=== PATIENT | male | born 1990 | race Caucasian/White ===

== ENCOUNTER 2017-06-02 21:11 | Emergency (ER) | payer OTHER ==
[~2017-06-02] VITALS: Ht 175.3 cm; Wt 95.3 kg
[2017-06-02] MEDS ORDERED: PERCOCET (21:24)
[2017-06-02 21:35] VITALS: BP 151/91
== END 2017-06-02 21:53 | disposition short-term general hospital (02) ==
LOC: ER 21:11
DX: S68.110A Complete traumatic metacarpophalangeal amputation of right index finger, initial encounter (principal); S68.122A Partial traumatic metacarpophalangeal amputation of right middle finger, initial encounter; S68.022A Partial traumatic metacarpophalangeal amputation of left thumb, initial encounter; M20.001 Unspecified deformity of right finger(s); M21.942 Unspecified acquired deformity of hand, left hand; F17.210 Nicotine dependence, cigarettes, uncomplicated; W39.XXXA Discharge of firework, initial encounter; Y93.89 Activity, other specified; Y92.89 Other specified places as the place of occurrence of the external cause; Y99.8 Other external cause status